=== PATIENT | female | born 1945 | race Caucasian/White ===

== ENCOUNTER → 2024-01-28 09:16 | Outpatient (REF) | payer MEDICARE, SELFPAY | LOC: MRI 3T 09:16 | PROVIDERS: ATTENDING PHYSICIAN Student in an Organized Health Care Education/Training Program | DX: R15.9 Full incontinence of feces (principal); R26.81 Unsteadiness on feet | CPT/HCPCS: 72148 ==

== ENCOUNTER → 2024-02-06 11:05 | Outpatient (REF) | payer MEDICARE, SELFPAY | LOC: MRI 3T 11:05 | PROVIDERS: ATTENDING PHYSICIAN Orthopaedic Surgery Orthopaedic Surgery of the Spine; PRIMARYCARE PHYSICIAN Student in an Organized Health Care Education/Training Program | DX: M48.062 Spinal stenosis, lumbar region with neurogenic claudication (principal); M48.02 Spinal stenosis, cervical region | CPT/HCPCS: 72141 ==

== ENCOUNTER → 2024-03-03 11:39 | Outpatient (REF) | payer MEDICARE, SELFPAY ==
[2024-03-03 12:29] LABS: % Basophils 0.6 % (0-2); % Eosinophils 2.9 % (0-6); % Immature Granulocytes 0.3 % (0-0.5); % Lymphocytes 17.1 % (20.5-51.1); % Monocytes 6.5 % (1.7-9.3); % Neutrophils 72.6 % (42.2-75.2); Absolute Eosinophils 0.2 10^3/uL (0-0.7); Absolute Lymphocytes 1.2 10^3/uL (1.2-3.4); Absolute Monocytes 0.5 10^3/uL (0.1-0.6); Hematocrit 37.9 % (37.0-47.0); Hemoglobin 12.3 g/dL (12.0-16.0); Mean Corp Hgb Conc. 32.5 g/dL (33.0-37.0); Mean Corpuscular Hgb 27.6 pg (27.0-31.0); Mean Platelet Volume 11.1 fL (7.4-10.4); Nucleated Red Blood Cells % 0 %; Platelet Count 288 10^3/uL (130-400); Red Blood Cell Count 4.46 10^6/uL (4.20-5.40); Red Cell Dist. Width 13.2 % (11.5-14.5); White Blood Cell Count 6.9 10^3/uL (4.8-10.8)
[2024-03-03 12:36] LABS: ALT (SGPT) 17 U/L (0-35); AST (SGOT) 23 U/L (14-36); Albumin 4.4 g/dl (3.5-5.0); Alkaline Phosphatase 133 U/L (38-126); Blood Urea Nitrogen 36 mg/dl (7-17); Calcium 10.2 mg/dl (8.4-10.2); Carbon Dioxide 24 mmol/L (22-30); Chloride 105 mmol/L (98-107); Glucose 134 mg/dl (70-99); Potassium 4.4 mmol/L (3.5-5.1); Sodium 140 mmol/L (135-145); Total Bilirubin 0.7 mg/dl (0.2-1.3); Total Protein 7.5 g/dl (6.3-8.2); eGFR > 60.00
[2024-03-03 12:55] LABS: Microalbumin, Random Urine 2.8 mg/dl (0.6-1.7); Microalbumin/creatinine Ratio 57.5 mg/g
[2024-03-03 13:06] LABS: TSH Reflex To Free T4 1.49 uIU/ml (0.47-4.68)
[2024-03-03 13:11] LABS: Glycohemoglobin (HgbA1c) 7.7 % (4.0-5.6)
[2024-03-03 13:25] LABS: Vitamin B12 255 pg/ml (239-931)
== END ==
LOC: REG 11:39
PROVIDERS: ATTENDING PHYSICIAN Student in an Organized Health Care Education/Training Program
DX: R29.6 Repeated falls (principal); R26.81 Unsteadiness on feet; G62.9 Polyneuropathy, unspecified; E11.9 Type 2 diabetes mellitus without complications; I10 Essential (primary) hypertension
CPT/HCPCS: 36415; 80053; 82043; 82570; 82607; 83036; 84443; 85025

== ENCOUNTER → 2024-03-08 17:43 | Outpatient (REF) | payer MEDICARE, SELFPAY ==
[2024-03-08 18:41] LABS: Urine Albumin Negative (Neg - Trace); Urine Bilirubin Negative (Negative); Urine Character Very Cloudy (Clear); Urine Color Straw; Urine Glucose 3+ (Negative); Urine Ketone Negative (Negative); Urine Leukocyte 2+ (Negative); Urine Nitrite Positive (Negative); Urine Occult Blood 3+ (Negative); Urine Urobilinogen Negative (Neg - 1+)
[2024-03-08 19:01] LABS: Urine Red Blood Cell 0-2 /HPF (0-2)
[2024-03-08 19:02] LABS: Urine Bacteria Many (Negative); Urine White Cell 50-60 /HPF (0-5)
== END ==
LOC: CLAB 17:43
PROVIDERS: ATTENDING PHYSICIAN Urology
DX: R81 Glycosuria (principal)
CPT/HCPCS: 81003; 81015; 87077; 87086; 87186

== ENCOUNTER → 2024-04-11 16:19 | Outpatient (REF) | payer MEDICARE, SELFPAY | LOC: RAD 16:19 | PROVIDERS: ATTENDING PHYSICIAN Urology; FAMILY PHYSICIAN Student in an Organized Health Care Education/Training Program | DX: N32.81 Overactive bladder (principal); N81.10 Cystocele, unspecified | CPT/HCPCS: 76770; 76856 ==

== ENCOUNTER → 2024-06-26 12:40 | Outpatient (REF) | payer MEDICARE, SELFPAY | LOC: WOUND 12:40 | PROVIDERS: ATTENDING PHYSICIAN Surgery; FAMILY PHYSICIAN Student in an Organized Health Care Education/Training Program | DX: I87.313 Chronic venous hypertension (idiopathic) with ulcer of bilateral lower extremity (principal); L97.211 Non-pressure chronic ulcer of right calf limited to breakdown of skin; L97.221 Non-pressure chronic ulcer of left calf limited to breakdown of skin; I87.2 Venous insufficiency (chronic) (peripheral); I73.9 Peripheral vascular disease, unspecified; E11.9 Type 2 diabetes mellitus without complications; E66.01 Morbid (severe) obesity due to excess calories; R29.6 Repeated falls | CPT/HCPCS: 99204 ==

== ENCOUNTER → 2024-07-03 13:39 | Outpatient (REF) | payer MEDICARE, SELFPAY | LOC: WOUND 13:39 | PROVIDERS: ATTENDING PHYSICIAN Surgery; FAMILY PHYSICIAN Student in an Organized Health Care Education/Training Program | DX: I87.313 Chronic venous hypertension (idiopathic) with ulcer of bilateral lower extremity (principal); L97.211 Non-pressure chronic ulcer of right calf limited to breakdown of skin; L97.221 Non-pressure chronic ulcer of left calf limited to breakdown of skin; I87.2 Venous insufficiency (chronic) (peripheral); I73.9 Peripheral vascular disease, unspecified; E11.9 Type 2 diabetes mellitus without complications; E66.01 Morbid (severe) obesity due to excess calories; R29.6 Repeated falls | CPT/HCPCS: 99213 ==

== ENCOUNTER → 2024-07-10 13:53 | Outpatient (REF) | payer MEDICARE, SELFPAY | LOC: WOUND 13:53 | PROVIDERS: ATTENDING PHYSICIAN Surgery; FAMILY PHYSICIAN Student in an Organized Health Care Education/Training Program | DX: I87.313 Chronic venous hypertension (idiopathic) with ulcer of bilateral lower extremity (principal); L97.211 Non-pressure chronic ulcer of right calf limited to breakdown of skin; L97.221 Non-pressure chronic ulcer of left calf limited to breakdown of skin; I87.2 Venous insufficiency (chronic) (peripheral); I73.9 Peripheral vascular disease, unspecified | CPT/HCPCS: 99212 ==

== ENCOUNTER → 2024-08-15 09:22 | Outpatient (REF) | payer MEDICARE, SELFPAY | LOC: HWRAD 09:22 | PROVIDERS: ATTENDING PHYSICIAN Student in an Organized Health Care Education/Training Program | DX: N95.0 Postmenopausal bleeding (principal) | CPT/HCPCS: 76830; 76856 ==

== ENCOUNTER → 2024-11-22 08:49 | Outpatient (REF) | payer MEDICARE, SELFPAY ==
[2024-11-22 11:10] LABS: Folate 15.8 ng/ml (2.76-20); Vitamin B12 248 pg/ml (239-931)
== END ==
LOC: REG 08:49
PROVIDERS: ATTENDING PHYSICIAN Psychiatry & Neurology Neurology; FAMILY PHYSICIAN Student in an Organized Health Care Education/Training Program
DX: G62.9 Polyneuropathy, unspecified (principal)
CPT/HCPCS: 36415; 82607; 82746; 84155; 84165

== ENCOUNTER → 2025-04-30 17:07 | Outpatient (REF) | payer MEDICARE, SELFPAY ==
[2025-05-01 17:40] LABS: Urine Character Slightly Cloudy (Clear)
== END ==
LOC: CLAB 17:07
PROVIDERS: ATTENDING PHYSICIAN Urology
DX: N39.0 Urinary tract infection, site not specified (principal)
CPT/HCPCS: 81003; 87086

== ENCOUNTER → 2025-07-09 12:53 | Outpatient (REF) | payer MEDICARE, SELFPAY | LOC: HWRAD 12:53 | PROVIDERS: ATTENDING PHYSICIAN Obstetrics & Gynecology; FAMILY PHYSICIAN Student in an Organized Health Care Education/Training Program | DX: N81.2 Incomplete uterovaginal prolapse (principal) | CPT/HCPCS: 76830; 76856 ==

== ENCOUNTER 2025-09-03 06:15 | Day surgery (SDC) | payer MEDICARE, SELFPAY ==
[2025-08-24 11:34] LABS: Hematocrit 42.5 % (37.0-47.0); Hemoglobin 13.7 g/dL (12.0-16.0); Mean Corp Hgb Conc. 32.2 g/dL (33.0-37.0); Mean Corpuscular Volume 89.3 fL (81.0-99.0); Platelet Count 313 10^3/uL (130-400); Red Cell Dist. Width 12.5 % (11.5-14.5)
[2025-08-24 11:59] LABS: Blood Urea Nitrogen 30 mg/dl (7-17); Calcium 10.4 mg/dl (8.4-10.2); Carbon Dioxide 29 mmol/L (22-30); Chloride 101 mmol/L (98-107); Glucose 143 mg/dl (70-99); Potassium 5.0 mmol/L (3.5-5.1); Sodium 138 mmol/L (135-145); eGFR > 60.00
[2025-08-24 13:50] VITALS: BMI 34.8
[2025-09-03] VITALS (13 sets, daily range): BP systolic 119–148; BP diastolic 62–71; BMI 34.8
[2025-09-03 07:50] LABS: Glucose - Point of Care 200 mg/dl (70-99)
[2025-09-03] MEDS: NORMOSOL-R/PLASMALYTE-A 1000 IV (07:51)
[2025-09-03 09:51] LABS: Glucose - Point of Care 191 mg/dl (70-99)
== END 2025-09-03 14:31 | disposition home or self-care (01) ==
LOC: SDS 06:15
PROVIDERS: ATTENDING PHYSICIAN Obstetrics & Gynecology; FAMILY PHYSICIAN Student in an Organized Health Care Education/Training Program
DX: N81.2 Incomplete uterovaginal prolapse (principal); N39.3 Stress incontinence (female) (male); N95.8 Other specified menopausal and perimenopausal disorders; N36.41 Hypermobility of urethra
CPT/HCPCS: 57288; 57120; 57250; 36415; 80048; 82962; 85027; 86850; 86900; 86901; 93005; C1771